=== PATIENT | female | born 1975 | race Caucasian/White ===

== ENCOUNTER 2018-05-30 20:51 | Emergency (ER) | payer BC ==
[2018-05-30] MEDS ORDERED: PROMETHAZINE HCL INJ 25 MG/ML VIAL ONE (21:29)
[2018-05-30] MEDS ORDERED: SODIUM CHLORIDE 0.9% 50ML 50 ML ONE (21:30)
[2018-05-30] MEDS: ONDANSETRON ODT 8 MG TAB SL ONE (21:34)
[2018-05-30] MEDS: PROMETHAZINE HCL INJ 12.5 MG in SODIUM CHLORIDE 0.9% 50ML 50 ML IVPB ONE (21:34)
[2018-05-30] MEDS: SODIUM CHLORIDE 0.9% 1000ML 1,000 ML IVS ONE (21:34)
[2018-05-30 22:17] VITALS: TEMP 99.6; O2SAT 100
--- NOTE | 2018-05-30 22:35 | RAD ---
EXAM DESCRIPTION: Abdomen Flat Upright CLINICAL HISTORY: 42 years Female [place], leukocytosis COMPARISON: None. TECHNIQUE: Single view of the abdomen. FINDINGS: No evidence of free intraperitoneal air. No evidence organomegaly. Lung bases appear clear. Overall paucity of bowel gas. No evidence to suggest obstruction. Psoas margins are well-defined. IMPRESSION: No acute plain film abnormality is identified. Electronically signed by: Umu Gardiner MD 05/30/2018 10:33 PM [employer]IONAL MANAGER
[2018-05-31] MEDS ORDERED: SODIUM CHLORIDE 0.9% 250ML 250 ML ONE (00:11)
[2018-05-31] MEDS ORDERED: AZITHROMYCIN IV 500 MG VIAL IVPB ONE (00:11)
[2018-05-31] MEDS: AZITHROMYCIN IV 500 MG in SODIUM CHLORIDE 0.9% 250ML 250 ML IVPB ONE (00:17)
--- NOTE | 2018-05-31 01:41 | ED.PDOC ---
History of Present Illness - General Chief Complaint: GI Problem Stated Complaint: N/V/D since 1600 Time Seen by Provider: 05/30/18 20:58 Source: patient Exam Limitations: no limitations - History of Present Illness Initial Comments: The patient is a 42-year-old female presenting to the emergency room secondary to acute onset abdominal cramping with associated nausea vomiting and diarrhea. No blood in either. No focal abdominal pain just mainly cramping. No symptoms prior. No recent surgeries.the patient does appear markedly dehydrated with dry mucous membranes and pale. Timing/Duration: 4-6 hours Severity: severe Improving Factors: nothing Worsening Factors: nothing Associated Symptoms: loss of appetite, malaise, nausea/vomiting Allergies/Adverse Reactions: Allergies NO KNOWN ALLERGY Allergy (Verified 05/30/18 22:17) Home Medications: Ambulatory Orders Nitrofurantoin Monohydrate Mac [Macrobid] 100 mg PO BID #20 cap 12/23/15 Phenazopyridine HCl [Pyridium] 200 mg PO TID #6 tab 12/23/15 Azithromycin 500 mg PO DAILY #3 tab 05/31/18 Review of Systems - Review of Systems Constitutional: States: malaise, weakness EENTM: States: no symptoms reported Respiratory: States: no symptoms reported Cardiology: States: no symptoms reported Gastrointestinal/Abdominal: States: diarrhea, nausea, vomiting Genitourinary: States: no symptoms reported Musculoskeletal: States: no symptoms reported Skin: States: no symptoms reported Neurological: States: no symptoms reported Endocrine: States: no symptoms reported All other Systems: No Change from Baseline Past Medical History (General) - Patient Medical History Hx Seizures: No Hx Stroke: No Hx Dementia: No Hx Asthma: No Hx of COPD: No Hx Cardiac Disorders: No Hx Congestive Heart Failure: No Hx Pacemaker: No Hx Hypertension: No Hx Thyroid Disease: No Hx Diabetes: No Hx Gastroesophageal Reflux: No Hx Renal Disease: No Hx Cancer: No Hx of HIV: No Hx Hepatitis C: No Hx MRSA: No Surgical History: no surgical history - Vaccination History Hx Tetanus, Diphtheria Vaccination: No Hx Influenza Vaccination: No Hx Pneumococcal Vaccination: No - Social History Hx Tobacco Use: No Hx Chewing Tobacco Use: No Hx Alcohol Use: Yes Hx Substance Use: No Hx Substance Use Treatment: No Hx Depression: No Hx Physical Abuse: No Hx Emotional Abuse: No Hx Suspected Abuse: No - Female History Hx Last Menstrual Period: 11/29/15 Patient : No - There are no precautions being taken Family Medical History - Family History Father Family History: Unknown Physical Exam - Physical Exam General Appearance: Alert, Ill Appearing Eye Exam: bilateral normal Ears, Nose, Throat: hearing grossly normal, normal ENT inspection, normal pharynx - mucous membranes are dry Neck: non-tender, full range of motion, supple Respiratory: lungs clear, normal breath sounds, no respiratory distress, no accessory muscle use Cardiovascular/Chest: normal peripheral pulses, regular rate, rhythm, no edema Peripheral Pulses: radial,right: 2+, radial,left: 2+, dorsalis pedis,right: 2+, dorsalis pedis,left: 2+ Gastrointestinal/Abdominal: non tender, soft Rectal Exam: deferred Back Exam: no CVA tenderness, no vertebral tenderness Extremity: normal range of motion, non-tender, normal inspection, no pedal edema , normal capillary refill Neurologic: field human resources manager II-XII nml as tested, alert, normal mood/affect, oriented x 3 Skin Exam: normal color Comments: Vital Signs - 24 hr 05/30/18 21:00 Temperature 99.6 F Pulse Rate [ 90 monitor] Respiratory 16 Rate Blood Pressure 106/64 [Left Arm] O2 Sat by Pulse 100 Oximetry Progress - Progress Progress: 05/31/18 01:43 the patient is a 42-year-old female presenting to the emergency room with acute gastroenteritis that is most likely bacterial in origin. The patient has been given a dose of azithromycin IV and will be continued on oral azithromycin for the next 3 days. She has also received IV fluids and nausea medications here. She is feeling better. She'll be written for Zofran for as needed use along with the azithromycin and some Pepcid. ER warnings were given. Handwashing is encouraged. She should follow up with her primary care doctor later this week, and have her white blood cell count rechecked to make sure that it is trending back down to normal. - Results/Orders Results/Orders: 05/30/18 21:01 UA [URINALYSIS] Stat Laboratory Results - last 24 hr 05/30/18 05/30/18 05/30/18 21:15 21:15 21:15 WBC 20.5 H* RBC 5.06 Hgb 16.0 Hct 48.1 H MCV 95.0 MCH 31.5 H MCHC 33.2 RDW 12.7 Plt Count 263 MPV 7.0 L Absolute Neuts (auto) Not Reportable Absolute Lymphs (auto) Not Reportable Absolute Monos (auto) Not Reportable Absolute Eos (auto) Not Reportable Neutrophils % Not Reportable Neutrophils % (Manual) 85.0 H Lymphocytes % Not Reportable Lymphocytes % (Manual) 2.0 Monocytes % Not Reportable Monocytes % (Manual) 3.0 Eosinophils % Not Reportable Basophils % Not Reportable Band Neutrophils 10.0 H Sodium 140 Potassium 3.9 Chloride 105 Carbon Dioxide 25 Anion Gap 13.9 BUN 11 Creatinine 0.84 BUN/Creatinine Ratio 13.1 Random Glucose 150 H Serum Osmolality 281.7 Calcium 9.6 Total Bilirubin 0.5 AST 15 ALT 12 Alkaline Phosphatase 49 Serum Total Protein 8.3 H Albumin 5.0 Globulin 3.3 Albumin/Globulin Ratio 1.5 Amylase 58 Lipase < 14 L Serum HCG, Qual Negative bdominal series fails to show any obstruction or perforation. Urinalysis has ketones but no infection Departure - Departure Clinical Impression: Gastroenteritis Disposition: Discharge to Home or Self Care Condition: Fair Departure Forms: ED Discharge - Pt. Copy, Patient Portal Self Enrollment Instructions: Bacterial Gastroenteritis, Child (DC) Diet: bland diet Activity: increase activity as tolerated Referrals: KELY SOSA FNP [Primary Care Provider] - 1-5 Days Prescriptions: Azithromycin 500 mg PO DAILY #3 tab Home Medications: Ambulatory Orders Nitrofurantoin Monohydrate Mac [Macrobid] 100 mg PO BID #20 cap 12/23/15 Phenazopyridine HCl [Pyridium] 200 mg PO TID #6 tab 12/23/15 Azithromycin 500 mg PO DAILY #3 tab 05/31/18 Additional Instructions: the patient is a 42-year-old female presenting to the emergency room with acute gastroenteritis that is most likely bacterial in origin. The patient has been given a dose of azithromycin IV and will be continued on oral azithromycin for the next 3 days. She has also received IV fluids and nausea medications here. She is feeling better. She'll be written for Zofran for as needed use along with the azithromycin and some Pepcid. ER warnings were given. Handwashing is encouraged. She should follow up with her primary care doctor later this week, and have her white blood cell count rechecked to make sure that it is trending back down to normal.
[2018-05-31] MEDS: SODIUM CHLORIDE 0.9% 1000ML 1,000 ML IVS ONE (02:20)
[2018-05-31 04:11] VITALS: BP 95/59
== END 2018-05-31 04:14 | disposition home or self-care (01) ==
LOC: ER 20:51
DX: K52.9 Noninfective gastroenteritis and colitis, unspecified (principal)

== ENCOUNTER 2020-01-27 02:03 | Emergency (ER) | payer BC ==
--- NOTE | 2020-01-27 02:15 | ED.PDOC ---
History of Present Illness - General Time Seen by Provider: 01/27/20 02:06 - History of Present Illness Initial Comments: 44 yo F no significant PMH presents to ED c/o dysuria since 8pm tonight. Denies fever cough sob recent travel or contact with covid19 denies fever chills nausea vomiting diarrhea chest pain sob diaphoresis. No change in diet symptoms are disturbing rest no change in bowel habits. Admits drinking red wine occasionally denies smoking denies FH HTN DM has no PMD for follow up no other c/o today. PPE worn-N95 surgical mask with attached face shield over N95 goggles gloves and face shield over that Allergies/Adverse Reactions: Allergies NO KNOWN ALLERGY Allergy (Verified 05/30/18 22:17) Home Medications: Ambulatory Orders Nitrofurantoin Monohydrate Mac [Macrobid] 100 mg PO BID #20 cap 12/23/15 Phenazopyridine HCl [Pyridium] 200 mg PO TID #6 tab 12/23/15 Azithromycin 500 mg PO DAILY #3 tab 05/31/18 Acetaminophen [Tylenol] 650 mg PO Q6H PRN #30 tab 01/27/20 Amoxicillin & Pot Clavulanate [Augmentin Tab] 875 mg PO BID 10 Days #20 tab 01/27/20 Ibuprofen 600 mg PO Q6H PRN #20 tab 01/27/20 Review of Systems - Review of Systems Constitutional: States: see HPI EENTM: States: see HPI Respiratory: States: see HPI Cardiology: States: see HPI Gastrointestinal/Abdominal: States: see HPI Genitourinary: States: see HPI Musculoskeletal: States: see HPI Skin: States: see HPI Neurological: States: see HPI Endocrine: States: see HPI All other Systems: Reviewed and Negative Past Medical History (General) - Patient Medical History Hx Seizures: No Hx Stroke: No Hx Dementia: No Hx Asthma: No Hx of COPD: No Hx Cardiac Disorders: No Hx Congestive Heart Failure: No Hx Pacemaker: No Hx Hypertension: No Hx Thyroid Disease: No Hx Diabetes: No Hx Gastroesophageal Reflux: No Hx Renal Disease: No Hx Cancer: No Hx of HIV: No Hx Hepatitis C: No Hx MRSA: No - Vaccination History Hx Tetanus, Diphtheria Vaccination: No Hx Influenza Vaccination: No Hx Pneumococcal Vaccination: No - Social History Hx Tobacco Use: No Hx Chewing Tobacco Use: No Hx Alcohol Use: Yes Hx Substance Use: No Hx Substance Use Treatment: No Hx Depression: No Hx Physical Abuse: No Hx Emotional Abuse: No Hx Suspected Abuse: No - Female History Hx Last Menstrual Period: 11/29/15 Patient : No - There are no precautions being taken Family Medical History - Family History Father Family History: Unknown Physical Exam - Physical Exam General Appearance: No apparent distress Eye Exam: bilateral normal Ears, Nose, Throat: normal ENT inspection Neck: non-tender, full range of motion Respiratory: no respiratory distress Cardiovascular/Chest: regular rate, rhythm Gastrointestinal/Abdominal: non tender, soft Rectal Exam: deferred Back Exam: normal inspection Extremity: normal range of motion, non-tender Neurologic: no motor/sensory deficits Skin Exam: normal color Progress - Progress Progress: 01/27/20 02:16 A/P-Dysuria, UTI, Leukocytosis-ua uhcg cbc cmp iv bolus rocephin then d/c follow up pcp tylenol ibuprofen augmentin 01/27/20 02:43 Laboratory Tests 01/27/20 01/27/20 01/27/20 02:06 02:06 02:07 WBC 13.7 H RBC 4.38 Hgb 14.1 Hct 41.0 MCV 93.6 MCH 32.1 H MCHC 34.3 RDW 12.8 Plt Count 268 MPV 6.8 L Absolute Neuts (auto) 9.50 H Absolute Lymphs (auto) 3.10 Absolute Monos (auto) 0.90 H Absolute Eos (auto) 0.30 Absolute Basos (auto) 0.10 Neutrophils % 68.9 Lymphocytes % 22.3 Monocytes % 6.4 Eosinophils % 1.9 Basophils % 0.5 Sodium 135 Potassium 3.8 Chloride 102 Carbon Dioxide 25 Anion Gap 11.8 L BUN 17 Creatinine 0.79 BUN/Creatinine Ratio 21.5 H Random Glucose 84 Serum Osmolality 270.8 L Calcium 9.0 Total Bilirubin 0.7 AST 14 ALT 11 Alkaline Phosphatase 60 Serum Total Protein 7.6 Albumin 4.4 Globulin 3.2 Albumin/Globulin Ratio 1.4 Urine Color Urine Appearance Urine pH Ur Specific [place] Urine Protein Urine Glucose (UA) Urine Ketones Urine Blood Urine Nitrite Urine Bilirubin Urine Urobilinogen Ur Leukocyte Esterase Urine RBC Urine WBC Ur Epithelial Cells Urine Bacteria Urine HCG, Qual Negative 01/27/20 02:09 WBC RBC Hgb Hct MCV MCH MCHC RDW Plt Count MPV Absolute Neuts (auto) Absolute Lymphs (auto) Absolute Monos (auto) Absolute Eos (auto) Absolute Basos (auto) Neutrophils % Lymphocytes % Monocytes % Eosinophils % Basophils % Sodium Potassium Chloride Carbon Dioxide Anion Gap BUN Creatinine BUN/Creatinine Ratio Random Glucose Serum Osmolality Calcium Total Bilirubin AST ALT Alkaline Phosphatase Serum Total Protein Albumin Globulin Albumin/Globulin Ratio Urine Color Yellow Urine Appearance Sl cloudy Urine pH 5.5 Ur Specific [place] 1.025 Urine Protein 100 H Urine Glucose (UA) Negative Urine Ketones 15 H Urine Blood Large H Urine Nitrite Positive H Urine Bilirubin Negative Urine Urobilinogen 0.2 Ur Leukocyte Esterase Moderate H Urine RBC Tntc H Urine WBC Tntc H Ur Epithelial Cells 3-5 Urine Bacteria 3+ H Urine HCG, Qual Departure - Departure Clinical Impression: Dysuria UTI (urinary tract infection) Qualifiers: Urinary tract infection type: site unspecified Hematuria presence: with hematuria Qualified Code(s): N39.0 - Urinary tract infection, site not specified; R31.9 - Hematuria, unspecified Leukocytosis Qualifiers: Leukocytosis type: unspecified Qualified Code(s): D72.829 - Elevated white blood cell count, unspecified Time of Disposition: 02:45 Disposition: Discharge to Home or Self Care Condition: Good Referrals: KELY SOSA FNP [Primary Care Provider] - 1-2 Days Prescriptions: Amoxicillin & Pot Clavulanate [Augmentin Tab] 875 mg PO BID 10 Days #20 tab Ibuprofen 600 mg PO Q6H PRN #20 tab PRN Reason: Pain Acetaminophen [Tylenol] 650 mg PO Q6H PRN #30 tab PRN Reason: Pain Home Medications: Ambulatory Orders Nitrofurantoin Monohydrate Mac [Macrobid] 100 mg PO BID #20 cap 12/23/15 Phenazopyridine HCl [Pyridium] 200 mg PO TID #6 tab 12/23/15 Azithromycin 500 mg PO DAILY #3 tab 05/31/18 Acetaminophen [Tylenol] 650 mg PO Q6H PRN #30 tab 01/27/20 Amoxicillin & Pot Clavulanate [Augmentin Tab] 875 mg PO BID 10 Days #20 tab 01/27/20 Ibuprofen 600 mg PO Q6H PRN #20 tab 01/27/20
[2020-01-27] MEDS: SODIUM CHLORIDE 0.9% 1000ML 1,000 ML IVS ONE (02:42)
[2020-01-27] MEDS: cefTRIAXone SODIUM 1 GM in SODIUM CHL 0.9% 50ML MIN-BAG+ 50 ML IVPB ONE (02:42)
[2020-01-27 02:48] VITALS: TEMP 96; O2SAT 95
[2020-01-27] MEDS: ACETAMINOPHEN 500 MG TAB PO ONE (03:03)
[2020-01-27 03:25] VITALS: BP 111/77
== END 2020-01-27 03:24 | disposition home or self-care (01) ==
LOC: ER 02:03
DX: N39.0 Urinary tract infection, site not specified (principal); R31.9 Hematuria, unspecified; D72.829 Elevated white blood cell count, unspecified
CPT/HCPCS: 36415; 80053; 81001; 81025; 85025; 87086; J0696; J7030; J7050

== ENCOUNTER → 2020-03-27 | Outpatient (CLI) | payer OTHER ==
--- NOTE | 2020-03-27 11:53 | CT ---
EXAM DESCRIPTION: Abdoment/Pelvis w/o Contrast CLINICAL HISTORY: 44 years, Female, FREQUANT URINARY TRACT INFECTIONS COMPARISON: Previous ultrasound of the kidneys March 19, 2020 TECHNIQUE: CT of the abdomen and pelvis is performed according to our non contrast protocol. FINDINGS: The lung bases are clear. Heart size is normal. Liver, spleen, and pancreas are unremarkable. Adrenal glands appear normal. The right kidney is unremarkable. The left kidney is unremarkable. No renal stones or hydronephrosis. Small bowel loops appear normal in caliber with normal wall thickness. There is no lymphadenopathy, inflammation, or free fluid observed. In the pelvis, the appendix is normal. High density in the appendix may be old contrast. No inflammation around the cecum or terminal ileum or sigmoid colon. Moderate amount of fecal material throughout the colon. Multiple pills in the colon. No stones in the distal ureters or bladder. Rectal wall thickness is normal for degree of distention. Minimal free fluid in the pelvis probably physiologic. No cyst or mass in the pelvis. Uterus appears normal. No ovarian enlargement. No inguinal or lower pelvic adenopathy. Coronal and sagittal reformatted images confirm the findings. Uterus is anteverted. Degenerative disc disease at L5-S1. IMPRESSION: No acute upper abdominal process. No acute pelvic process. This exam was performed according to our departmental dose-optimization program, which includes automated exposure control, adjustment of the mA and/or kV according to patient size and/or use of iterative reconstruction technique. Total DLP equals 329.15 mGycm. Electronically signed by: Vasquez Foley MD 03/27/2020 11:51 AM CDT
== END ==
LOC: CT 08:03
PROVIDERS: ATTEND Urology
DX: N39.0 Urinary tract infection, site not specified (principal)

== ENCOUNTER → 2020-05-22 | Outpatient (CLI) | payer OTHER ==
--- NOTE | 2020-05-23 09:00 | RAD ---
EXAM DESCRIPTION: Lumbar Spine x-ray 5 Views CLINICAL HISTORY: LUMBOSACRAL RADICULITIS COMPARISON: None Available. TECHNIQUE: AP/lateral/ coned-down lateral/both obliques FINDINGS: Five view x-ray lumbar spine shows good alignment of the lumbar spine. There is no vertebral abnormality. Degenerative narrowing of intervertebral discs in the lower thoracic spine, L1-2 and L5-S1 levels. L5-S1 disc narrowing is noted with endplate sclerosis and mild spurring. There are no abnormalities of the posterior elements demonstrated. No pars fracture is seen on the oblique images. Few capsules in the stomach. IMPRESSION: Degenerative disc space narrowing most advanced at L5-S1. Electronically signed by: Vasquez Foley MD 05/23/2020 8:58 AM [facility]
--- NOTE | 2020-05-23 09:05 | RAD ---
EXAM DESCRIPTION: Cervical Spine,5 Views CLINICAL HISTORY: PAIN IN CERVICAL SPINE COMPARISON: None Available. TECHNIQUE: AP/lateral/ both oblique/open-mouth odontoid FINDINGS: Mild reversal of the usual lordosis of the cervical spine. Multilevel disc degeneration with loss of disc height at C3-4 through C6-7. Degenerative anterior and posterior spurring is noted. Posterior spurring appears most prominent at C5-6 and C6-7. Degenerative changes at the atlantodens interval. There is no bone lesion or fracture. Odontoid base appears intact. Lateral margins of C1 and C2 appear normal. Oblique images show moderate to moderately severe neural foraminal narrowing on the left at C5-6 and C6-7 and on the right at C4-5 through C6-7 levels. There is no soft tissue abnormality identified. IMPRESSION: Multilevel disc degeneration with associated neural foraminal narrowing as described. Electronically signed by: Vasquez Foley MD 05/23/2020 9:03 AM [facility]
== END ==
LOC: RAD 14:17
PROVIDERS: ATTEND Physician Assistant
DX: M51.17 Intervertebral disc disorders with radiculopathy, lumbosacral region (principal); M51.36 Other intervertebral disc degeneration, lumbar region; M50.30 Other cervical disc degeneration, unspecified cervical region

== ENCOUNTER → 2020-06-05 | Outpatient (CLI) | payer OTHER ==
--- NOTE | 2020-06-06 12:04 | MRI ---
EXAM DESCRIPTION: Cervical Spine magnetic resonance imaging. CLINICAL HISTORY: 44 years Female spinal stenosis, cervical region COMPARISON: Cervical spine radiographs May 22. TECHNIQUE: Multiplanar, high-field MRI, multiple sequences, non-contrast Cervical spine. FINDINGS: C2-C3: Minimal disc desiccation without bulging. Canal and neural foramina are patent. Bilateral facet joints are unremarkable. C3-C4 disc desiccation moderate disc space loss. Anterior bulging with spurs. Posterior bulging. Small uncinate spurs bilaterally. C4-C5: Disc desiccation and minimal disc space loss. Minimal anterior and posterior bulging. Canal and neural foramina are patent. Facet joints are negative. C5-C6: Disc desiccation and mild to moderate disc space loss. Anterior bulging and endplate spurs. Posterior broad-based bulge abutting the cord. Right posterior 4 mm disc protrusion impressing on the right C6 nerve. Right uncinate spur and right neural foraminal stenosis. Left foramen patent. Facet joints are unremarkable. Canal patent with mild neural foraminal narrowing. C6-C7: Disc desiccation and minimal disc space loss. Mortise space loss and moderate endplate reactive changes on the left uncinate spur. Moderate left neural foraminal narrowing. Facet joints are negative. Mild canal narrowing and right neural foramen is patent. Normal signal in the C7-T1 disc and T1-T2 disc with no bulging. Disc spaces preserved. Trace anterolisthesis of T1-T2. Canal and neural foramina are patent. Facet joints unremarkable. Spinal alignment . Loss of normal cervical lordosis.. No cord compression or cord edema. Atlantoaxial joint . Mild arthrosis.. Base of the cerebellar tonsils is at the level of the foramen magnum. Paravertebral soft tissues subcentimeter cyst in the thyroid gland.. Vertebral bodies are not compressed at any level. Normal marrow signal in the remaining vertebral bodies and the posterior elements. IMPRESSION: 1. Multiple levels of disc desiccation disc bulging, and endplate reactive changes. 2. C5-C6 disc protruding into the right of midline impressing on the right C6 nerve. Right paracentral mild canal stenosis. Right neural foraminal stenosis. 3. Posterior left sides spondylosis C6-C7 and uncinate spur with moderate left neural foraminal narrowing. Electronically signed by: Jeremy Shanks MD 06/06/2020 12:02 PM [facility]
== END ==
LOC: MRI 09:11
PROVIDERS: ATTEND Family Medicine
DX: M48.02 Spinal stenosis, cervical region (principal); M47.892 Other spondylosis, cervical region; M50.222 Other cervical disc displacement at C5-C6 level; M50.30 Other cervical disc degeneration, unspecified cervical region; M25.78 Osteophyte, vertebrae

== ENCOUNTER → 2020-08-09 | Outpatient (CLI) | payer OTHER | LOC: GMAL 17:23 | PROVIDERS: ATTEND Family Medicine | DX: E53.8 Deficiency of other specified B group vitamins (principal); R53.83 Other fatigue; E83.51 Hypocalcemia ==